=== PATIENT | male | born 1975 | race Caucasian/White ===

== ENCOUNTER 2022-09-19 19:10 | Emergency (ER) | payer MEDICAID, SELFPAY ==
[2022-09-19 19:11] VITALS: BP 173/77; PULSE 80; RESP 18; TEMP 36.7; O2SAT 97; BMI 37.6
[2022-09-19 19:30] VITALS: BP 175/76; PULSE 72; O2SAT 97
--- NOTE | 2022-09-19 20:00 | PC.NURSE ---
Dr. Tena at
[2022-09-19 20:01] LABS: Microscopic, Urine URINE MICROSCOPIC (MICROSCOPIC)
[2022-09-19 20:05] LABS: Chloride 100 mmol/L (98-107); Sodium 137 mmol/L (136-145)
[2022-09-19 20:06] LABS: Potassium 4.2 mmoL/L (3.5-5.1)
[2022-09-19 20:08] LABS: Alanine Aminotransferase 39 U/L (12-78); Albumin Level 2.6 g/dl (3.5-5.0); Albumin/Globulin Ratio 0.6 (1.1-1.8); Alkaline Phosphatase 120 U/L (38-126); Anion Gap 11.2 mEq/L (5-15); Aspartate Amino Transferase 100 U/L (17-59); Blood Urea Nitrogen 8 mg/dl (9-20); Carbon Dioxide 30 mmol/L (22.0-30.0); Creatinine Clearance Estimated 246 mL/min (50-200); Estimated Glomerular Filt Rate 144 ml/min (>60); GFR (African American) 174 ML/MIN (>60); Globulin 4.3 g/dL (1.3-3.2); Total Protein,Serum 6.9 g/dl (6.3-8.2)
[2022-09-19 20:09] LABS: Calcium 8.2 mg/dl (8.4-10.2); Glucose 106 mg/dl (74-100)
--- NOTE | 2022-09-19 20:18 | CT_ITS ---
PROCEDURE INFORMATION: Exam: CT Abdomen And Pelvis With Contrast Exam date and time: 09/19/2022 8:32 PM Age: 47 years old Clinical indication: Abdominal pain; Flank; Right; Additional info: Abd pain (r) flank TECHNIQUE: Imaging protocol: Computed tomography of the abdomen and pelvis with contrast. Radiation optimization: All CT scans at this facility use at least one of these dose optimization techniques: automated exposure control; mA and/or kV adjustment per patient size (includes targeted exams where dose is matched to clinical indication); or iterative reconstruction. Contrast material: ISOVUE; Contrast volume: 75 ml; Contrast route: IV; COMPARISON: No relevant prior studies available. FINDINGS: Liver: Cirrhosis. Gallbladder and bile ducts: Cholecystectomy.No ductal dilation. Pancreas: Normal. No ductal dilation. Spleen: Normal. No splenomegaly. Adrenal glands: Normal. No mass. Kidneys and ureters: Kidneys unremarkable. Mild right hydronephrosis and ureteral dilatation secondary to a punctate stone in the right UVJ. Stomach and bowel: Diffuse colonic wall thickening concerning for pancolitis. No small bowel obstruction. Appendix: Appendectomy. Intraperitoneal space: Unremarkable. No free air. No significant fluid collection. Vasculature: Unremarkable. No abdominal aortic aneurysm. Lymph nodes: Unremarkable. No enlarged lymph nodes. Urinary bladder: Unremarkable as visualized. Reproductive: Unremarkable as visualized. Bones/joints: Unremarkable. No acute fracture. Soft tissues: Unremarkable. IMPRESSION: 1. Mild right hydronephrosis and ureteral dilatation secondary to a punctate stone in the right UVJ. 2. Diffuse colonic wall thickening concerning for pancolitis. 3. Cirrhosis. 4. No small bowel obstruction. 5. Kidneys unremarkable. 6. Appendectomy.
--- NOTE | 2022-09-19 20:25 | [facility].EDABDPAI ---
Discharge Plan Disposition Patient Disposition: Home, Self-Care Condition: Good Prescriptions Prescriptions: New ondansetron 4 mg tablet,disintegrating 4 mg PO DAILY Qty: 30 0RF ketorolac 10 mg tablet 10 mg PO Q8H 5 Days Qty: 15 0RF tamsulosin [Flomax] 0.4 mg capsule 0.4 mg PO DAILY Qty: 20 0RF cefpodoxime 200 mg tablet 200 mg PO BID 7 Days Qty: 14 0RF Rx Instructions: must administer with a meal/food Referrals Follow up/Referrals: Provider,MD Nilson [Primary Care Provider] - See instructions Robles Ordoñez MD [Staff Physician] - See instructions Activity Restrictions/Add. Instructions Additional Instructions/Restrictions: Please follow-up with your primary care physician within the next 1 to 2 days. You have also been given a referral to urology. Please take your medication as prescribed and drink plenty of water. Please return for any worsening symptoms such as bloody stools, inability to have a bowel movement, inability to eat and drink or any other concerns. Clinical Impressions Clinical Impression: Calculus of kidney, Colitis, Acute UTI Instructions Patient Instructions: DI for Kidney Stones, DI for Colitis Print Language Print Language: Stateless Discharge ED Provider: Judi Tena Abdominal Pain HPI General Chief Complaint: Abdominal Pain Stated Complaint: abd pain, blood in urine Time Seen by Provider: 09/19/22 20:25 Mode of Arrival: Ambulatory Source of Information: Patient Limitations: No Limitations Description of Symptoms (Recalled from ER Triage Doc. by RN): pt c/o RLQ pain that radiates into back and blood in urine that started today. History of Present Illness HPI narrative: Mr. Garcia is a 47-year-old male past medical history for morbid obesity, status post appendectomy, status postcholecystectomy presenting to the emergency department for right-sided abdominal pain as well as hematuria. Symptom onset 1 week prior which is progressively worsened over the last 24 hours. Patient reports bright manjinder blood from his urine. Also reports dysuria. Reports normal bowel movements. No bloody stools or bloody emesis. However patient reports he feels nauseated. Patient denies history of nephrolithiasis. No recent trauma to the abdomen. Patient reports symptoms radiate into his lower right back. Patient reports he only has liver disease but denies any other significant health problems. MD complaint: abdominal pain Onset (ago): week(s) Consistency: constant Severity: severe Quality: sharp Radiation: none Relieving factors: nothing Exacerbating factors: nothing Related Data Previous Rx's Medication Instructions Recorded cefpodoxime 200 mg tablet 200 mg PO BID 7 days #14 tabs 09/19/22 ketorolac 10 mg tablet 10 mg PO Q8H 5 days #15 tabs 09/19/22 ondansetron 4 mg disintegrating 4 mg PO DAILY #30 tabs 09/19/22 tablet tamsulosin 0.4 mg capsule (Flomax) 0.4 mg PO DAILY #20 caps 09/19/22 Allergies Allergy/AdvReac Type Severity Reaction Status Date / Time No Known Allergies Allergy Verified 09/19/22 19:51 PFSH PFSH Social History Smoking Status: Never smoker alcohol intake: current current occupational status: other Travel in the last 8 weeks: None ROS Obtained: Yes All systems reviewed & no additional complaints except as documented Constitutional Constitutional: Reports system reviewed and no additional complaints, except as documented Eyes Eyes: Reports system reviewed and no additional complaints, except as documented ENT Ears, Nose, Mouth, and Throat: Reports system reviewed and no additional complaints, except as documented Cardiovascular Cardiovascular: Reports system reviewed and no additional complaints, except as documented Respiratory Respiratory: Reports system reviewed and no additional complaints, except as documented Gastrointestinal Gastrointestingal: Reports abdominal pain and abby
[2022-09-19 20:39] LABS: Appearance,Urine CLOUDY (Clear); Blood, Urine 3+ (Negative); Color,Urine RED (Yellow); Glucose,Urine (UA) TRACE (Negative); Ketones,Urine 1+ (Negative); Leukocyte Esterase,Urine 2+ (Negative); Nitrate,Urine POSITIVE (Negative); PH,Urine 6.5 (5.0-8.5); Protein,Urine 3+ (Negative); Specific Gravity, Urine 1.025 (1.005-1.030)
[2022-09-19 20:40] LABS: Bilirubin,Urine 3+ (Negative)
[2022-09-19 21:02] LABS: Bacteria,Urine 2+ /lpf
[2022-09-19 21:12] LABS: Basophils % 0.3 % (0.1-2.0); Eosinophils # 0.1 K/mm3 (0.0-0.4); Eosinophils % 1.1 % (0.1-12.0); Hemoglobin 12.7 g/dL (14.1-18.0); Lymphocytes # 0.3 K/mm3 (0.7-4.5); Lymphocytes % 6.9 % (10-50); Mean Corpuscular HGB Conc 31.8 g/dL (31.8-35.4); Mean Corpuscular Hemoglobin 32.7 pg (27.0-31.2); Mean Corpuscular Volume 102.9 fl (80-94); Mean Platelet Volume 9.1 fl (7.4-10.4); Monocytes # 0.3 K/mm3 (0.1-1.0); Monocytes % 6.4 % (1.7-9.3); Neutrophils % 85.2 % (37.0-80.0); Platelet Count 151 K/mm3 (142-424); Red Blood Count 3.89 M/mm3 (4.60-6.20); Red Cell Distribution Width 15.8 % (11.5-17.5); White Blood Count 4.7 K/mm3 (4.8-10.8)
[2022-09-19 21:26] VITALS: BP 109/46; PULSE 82; O2SAT 93
[2022-09-19 21:47] LABS: MANUAL DIFFERENTIAL MANUAL DIFFERENTIAL (MANUAL DIFF)
[2022-09-19 22:21] LABS: Hypochromasia 2+; Lymphocytes % 11 % (10-50); Monocytes % 5 % (2-9); Neutrophils % 84 % (42-76); Platelet Estimate Normal; Total Cells Counted 100
[2022-09-19 22:31] VITALS: BP 110/56; PULSE 80; RESP 18; TEMP 36.6; O2SAT 95
--- NOTE | 2022-09-20 09:17 | PC.NURSE ---
pharmacy called needing to switch ATB due to not being covered on insurance pharmacist advised cefdinir 300mg BID x10 days . Beto Villegas md was ok with that
== END 2022-09-19 22:33 | disposition home or self-care (01) ==
PROVIDERS: Emergency Provider Student in an Organized Health Care Education/Training Program
DX: N39.0 Urinary tract infection, site not specified (principal); N20.0 Calculus of kidney; K52.9 Noninfective gastroenteritis and colitis, unspecified; Z87.19 Personal history of other diseases of the digestive system
CPT/HCPCS: 36415; 74177; 80053; 81001; 85007; 85025; 87086; 87088; 87186; 96374; 96375; 99284; J2405; Q9967

== ENCOUNTER → 2023-07-14 23:36 | Outpatient (CLI) | payer MEDICAID, SELFPAY | PROVIDERS: PCP Nurse Practitioner; Visit Provider Nurse Practitioner | DX: L03.032 Cellulitis of left toe (principal); B95.7 Other staphylococcus as the cause of diseases classified elsewhere | CPT/HCPCS: 87070; 87077; 87186; 87205 ==

== ENCOUNTER → 2023-08-07 23:25 | Outpatient (CLI) | payer MEDICAID, SELFPAY | PROVIDERS: PCP Nurse Practitioner; Visit Provider Nurse Practitioner | DX: R30.0 Dysuria (principal) | CPT/HCPCS: 87086 ==

== ENCOUNTER → 2023-08-25 10:22 | Outpatient (CLI) | payer MEDICAID, SELFPAY ==
[2023-08-25 19:54] LABS: Basophils % 0.7 % (0.1-2.0); Eosinophils # 0.3 K/mm3 (0.0-0.4); Eosinophils % 9.7 % (0.1-12.0); Hematocrit 42.7 % (42.0-52.0); Hemoglobin 13.3 g/dL (14.1-18.0); Lymphocytes % 40.5 % (10-50); Mean Corpuscular Hemoglobin 32.7 pg (27.0-31.2); Mean Corpuscular Volume 105.4 fl (80-94); Mean Platelet Volume 10.1 fl (7.4-10.4); Monocytes # 0.2 K/mm3 (0.1-1.0); Monocytes % 6.2 % (1.7-9.3); Neutrophils # 1.1 K/mm3 (1.8-7.8); Platelet Count 71 K/mm3 (142-424); Red Blood Count 4.05 M/mm3 (4.60-6.20); Red Cell Distribution Width 16.8 % (11.5-17.5); White Blood Count 2.6 K/mm3 (4.8-10.8)
[2023-08-25 19:59] LABS: Alanine Aminotransferase 112 U/L (12-78); Albumin Level 2.5 g/dl (3.5-5.0); Albumin/Globulin Ratio 0.6 (1.1-1.8); Alkaline Phosphatase 117 U/L (38-126); Anion Gap 6.9 mEq/L (5-15); Aspartate Amino Transferase 375 U/L (17-59); Bilirubin,Total 4.6 mg/dl (0.2-1.3); Blood Urea Nitrogen 6 mg/dl (9-20); Calcium 7.7 mg/dl (8.4-10.2); Carbon Dioxide 30 mmol/L (22.0-30.0); Chloride 110 mmol/L (98-107); Estimated Glomerular Filt Rate 120 ml/min (>60); GFR (African American) 145 ML/MIN (>60); Globulin 4.2 g/dL (1.3-3.2); Glucose 143 mg/dl (74-100); Potassium 3.9 mmoL/L (3.5-5.1); Sodium 143 mmol/L (136-145); Total Protein,Serum 6.7 g/dl (6.3-8.2); Uric Acid 6.1 mg/dl (3.5-8.5)
[2023-08-25 20:27] LABS: Prostate Specific Ag Screen 0.2 ng/ml (0.0-4.0)
[2023-08-25 20:37] LABS: Erythrocyte Sedimentation Rate 15 mm/hr (0-15)
[2023-08-25 20:46] LABS: Vitamin B12 996 pg/mL (239-931)
[2023-08-25 22:03] LABS: Hemoglobin A1C 4.1 % (4.0-6.0)
[2023-08-27 13:20] LABS: RA Latex Turbid. <10.0 IU/mL (<14.0)
[2023-09-01 08:38] LABS: Antinuclear Antibodies, IFA POSITIVE
== END ==
LOC: LAB.DROPOF 08-26 10:22
PROVIDERS: PCP Nurse Practitioner; Visit Provider Nurse Practitioner
DX: M79.671 Pain in right foot (principal); M79.672 Pain in left foot; R20.2 Paresthesia of skin; Z79.899 Other long term (current) drug therapy; Z12.5 Encounter for screening for malignant neoplasm of prostate
CPT/HCPCS: 80053; 82607; 83036; 84443; 84550; 85025; 85651; 86038; 86431; G0103

== ENCOUNTER → 2023-09-18 00:02 | Outpatient (CLI) | payer MEDICAID, SELFPAY ==
[2023-09-17 19:52] LABS: Eosinophils # 0.2 K/mm3 (0.0-0.4); Hematocrit 40.9 % (42.0-52.0); Hemoglobin 13.6 g/dL (14.1-18.0); Lymphocytes # 1.1 K/mm3 (0.7-4.5); Lymphocytes % 32.6 % (10-50); Mean Corpuscular HGB Conc 33.1 g/dL (31.8-35.4); Mean Corpuscular Hemoglobin 36.1 pg (27.0-31.2); Mean Corpuscular Volume 108.9 fl (80-94); Mean Platelet Volume 8.7 fl (7.4-10.4); Monocytes # 0.4 K/mm3 (0.1-1.0); Monocytes % 10.4 % (1.7-9.3); Neutrophils # 1.7 K/mm3 (1.8-7.8); Neutrophils % 50.1 % (37.0-80.0); Platelet Count 74 K/mm3 (142-424); Red Blood Count 3.76 M/mm3 (4.60-6.20); Red Cell Distribution Width 16.5 % (11.5-17.5); White Blood Count 3.3 K/mm3 (4.8-10.8)
[2023-09-17 19:54] LABS: Alanine Aminotransferase 90 U/L (12-78); Albumin Level 2.5 g/dl (3.5-5.0); Albumin/Globulin Ratio 0.6 (1.1-1.8); Alkaline Phosphatase 107 U/L (38-126); Anion Gap 8.3 mEq/L (5-15); Aspartate Amino Transferase 243 U/L (17-59); Bilirubin,Total 4.3 mg/dl (0.2-1.3); Blood Urea Nitrogen 9 mg/dl (9-20); Calcium 7.6 mg/dl (8.4-10.2); Carbon Dioxide 28 mmol/L (22.0-30.0); Chloride 106 mmol/L (98-107); Estimated Glomerular Filt Rate 143 ml/min (>60); GFR (African American) 173 ML/MIN (>60); Globulin 4.3 g/dL (1.3-3.2); Glucose 96 mg/dl (74-100); Potassium 4.3 mmoL/L (3.5-5.1); Sodium 138 mmol/L (136-145); Total Protein,Serum 6.8 g/dl (6.3-8.2)
[2023-09-22 12:10] LABS: HBsAg Screen Positive (Negative); HCV Ab Reactive (Non Reactive); Hep A Ab, IGM Negative (Negative); Hep B Core Ab, IgM Negative (Negative)
== END ==
PROVIDERS: PCP Nurse Practitioner; Visit Provider Nurse Practitioner
DX: D69.6 Thrombocytopenia, unspecified (principal); R79.89 Other specified abnormal findings of blood chemistry
CPT/HCPCS: 80053; 80074; 85025